=== PATIENT | male | born 1940 | race Caucasian/White ===

== ENCOUNTER 2023-01-23 21:40 | Emergency (ER) | payer OTHER ==
[~2023-01-23] VITALS: Ht 172.7 cm; Wt 68.5 kg
[2023-01-23 21:40] VITALS: BP_SYST 132
--- NOTE | 2023-01-23 21:42 | NUR ---
ER examining patient in the [address]
--- NOTE | 2023-01-23 21:42 | NUR ---
Code stroke activated
--- NOTE | 2023-01-23 21:55 | NUR ---
Placed in room 6 . Placed on director of cardiac cath lab, blood pressure machine and pulse oximeter. To gown for exam. Side rails up. Report given to EDDA SALDANA(REG).
[2023-01-23] MEDS ORDERED: NACL 0.9% 1,000 ML IV ONE (22:00)
[2023-01-23] MEDS ORDERED: iohexoL 350 mgI/mL, 100 ML INFUS..BTL IV ONE (22:18)
--- NOTE | 2023-01-23 22:18 | NUR ---
NEURO TELE IS IN PROGRESS.
--- NOTE | 2023-01-23 22:28 | NUR ---
PATIENT TAKEN TO CT SCAN FOR CTA
[2023-01-23] MEDS ORDERED: TENECTEPLASE 50 MG VIAL IV ONE ×4 (22:30→22:45)
[2023-01-23 22:33] LABS: BASOPHILS % (AUTO) 0.6 % (0.0-2.0); EOSINOPHILS % (AUTO) 0.6 % (0.0-4.0); HEMATOCRIT 37.4 % (36-54); HEMOGLOBIN 12.7 g/dL (14.0-18.0); LYMPHOCYTES # (AUTO) 1.5 K/uL (1.0-5.5); LYMPHOCYTES % (AUTO) 27.1 % (20.5-51.5); MEAN CORPUSCULAR HEMOGLOBIN 36 pg (27-31); MEAN CORPUSCULAR HGB CONC 34 % (32-36); MEAN CORPUSCULAR VOLUME 105 fL (79.0-98.0); MONOCYTES # (AUTO) 0.5 K/uL (0.0-1.0); MONOCYTES % (AUTO) 8.2 % (1.7-9.3); NEUTROPHILS # (AUTO) 3.5 K/uL (1.8-7.7); NEUTROPHILS % (AUTO) 63.5 % (40.0-70.0); PLATELET COUNT (AUTO) 334 K/uL (130-430); RED BLOOD CELL COUNT(AUTO) 3.56 MIL/uL (4.2-6.2); RED CELL DISTRIBUTION WIDTH 13.8 % (9.0-15.0); WHITE BLOOD COUNT (AUTO) 5.5 K/uL (4.8-10.8)
[2023-01-23] MEDS ORDERED: ALTEPLASE 0 MG IV ONE (22:40)
[2023-01-23 22:49] LABS: PROTHROMBIN TIME 10.1 SECS (9.5-12.5)
[2023-01-23 22:55] LABS: ANION GAP 15 (5-15); CALCIUM 8.7 mg/dL (8.4-11.0); CHLORIDE 103 mmol/L (98-107); CREATININE 0.94 mg/dL (0.55-1.30); GLUCOSE 148 mg/dL (70-99); UREA NITROGEN, BLOOD 19 mg/dL (8-21)
[2023-01-23 22:59] LABS: ALANINE AMINOTRANSFERASE 16 U/L (12-78); ALBUMIN 3.8 g/dL (3.4-4.8); ASPARTATE AMINOTRANSFERASE 12 U/L (10-37); CHOLESTEROL 140 mg/dL (<200); TOTAL BILIRUBIN 0.3 mg/dL (0.0-1.0)
[2023-01-23 23:30] VITALS: BP_SYST 141
--- NOTE | 2023-01-23 23:40 | NUR ---
PATIENT REMAINS IN BED ON CLERICAL SUPPORT, [facility]UG[facility] AT [facility]ISDE.
--- NOTE | 2023-01-24 00:21 | NUR ---
REPORT GIVEN TO JUAN J COLIN[place]ES [place].
--- NOTE | 2023-01-24 00:25 | NUR ---
Patient to be transferred to [facility] . Is being transferred due to higher level of care. Receiving facility has accepting physician and available space. ER physician has signed transfer form. Patient or responsible alliance party has agreed to transfer and signed form. Patient belongings inventoried and will be sent with patient. Copy of nursing notes, lab reports, EKG, Physicians Orders and X-rays to be sent with patient. Report called to JUAN J at receiving facility. Receiving physician is [place]MENT[place]. [facility]. ambulance service has been called for transfer. ETA is [id number].
--- NOTE | 2023-01-24 00:46 | NUR ---
[facility] REPORT [phone] TRASNPORT WAS WITH [facility]
== END 2023-01-24 00:23 | disposition short-term general hospital (02) ==
LOC: SED 21:40
DX: I63.9 Cerebral infarction, unspecified (principal); R29.810 Facial weakness; R47.1 Dysarthria and anarthria; R41.82 Altered mental status, unspecified; R47.01 Aphasia; E78.5 Hyperlipidemia, unspecified; I10 Essential (primary) hypertension; Z79.899 Other long term (current) drug therapy
CPT/HCPCS: 99291; 70496; 96374; 71045; 96361; 82465; 80053; 82962; 85025; 85610; 85730; 86886; 86900; 86901; 84484; 36415; 70498; 70450; 80048; 76376; J3101; Q9967; J7030; J2997